=== PATIENT | male | born 1950 | race Caucasian/White ===

== ENCOUNTER → 2016-09-27 | Outpatient (CLI) | payer BC, OTHER ==
[~2016-09-27] MED LIST: CRS20 PO; GLC500 PO; IBUP-1050 PO; MULT-506 PO; OMEG10007 PO; PROSTATE PO; Probiotic PO; SERT25TA PO
[2016-09-27 13:11] LABS: ESTIMATED AVERAGE GLUCOSE 160 mg/dl; HA1C FLAG Normal (Normal)
== END | disposition home or self-care (01) ==
LOC: C.LAB 10:45
PROVIDERS: ATTEND Internal Medicine
DX: Z00.00 Encounter for general adult medical examination without abnormal findings (principal); E11.9 Type 2 diabetes mellitus without complications

== ENCOUNTER → 2016-12-26 | Outpatient (CLI) | payer BC, OTHER | END | disposition home or self-care (01) | LOC: C.LAB 14:23 | PROVIDERS: ATTEND Urology | DX: Z11.59 Encounter for screening for other viral diseases (principal); N40.1 Benign prostatic hyperplasia with lower urinary tract symptoms ==

== ENCOUNTER → 2017-04-14 | Outpatient (CLI) | payer BC, OTHER | END | disposition home or self-care (01) | LOC: C.RDSM 08:13 | PROVIDERS: ATTEND Physical Medicine & Rehabilitation | DX: M54.2 Cervicalgia (principal); M54.5 Low back pain ==

== ENCOUNTER → 2017-05-10 | Outpatient (CLI) | payer BC, OTHER ==
[2017-05-10 09:57] LABS: ALT/SGPT 27 U/L (12-78); BLOOD UREA NITROGEN 19 mg/dl (7-18); BUN/CREATININE RATIO 17.4 (10-20); CALCIUM 9.1 mg/dl (8.5-10.1); CARBON DIOXIDE 27 mmol/L (21-32); CHLORIDE 105 mmol/L (98-107); CHOLESTEROL 144 mg/dl (0-200); CREATININE 1.07 mg/dl (0.60-1.40); GLUCOSE 131 mg/dl (70-99); POTASSIUM 4.5 mmol/L (3.5-5.1); SODIUM 140 mmol/L (136-145); TRIGLYCERIDES 91 mg/dl (0-150); VERY LOW DENSITY LIPOPROT CALC 18 mg/dl
[2017-05-10 10:02] LABS: ALKALINE PHOSPHATASE 43 U/L (45-117); AST/SGOT 17 U/L (15-37); CHOLESTEROL/HDL RATIO 3.4; HDL CHOLESTEROL 42 mg/dl; LDL CHOLESTEROL CALCULATED 84 mg/dl
[2017-05-11 08:38] LABS: ESTIMATED AVERAGE GLUCOSE 137 mg/dl; HA1C FLAG Normal (Normal)
== END | disposition home or self-care (01) ==
LOC: C.LAB 08:50
PROVIDERS: ATTEND Internal Medicine
DX: E11.9 Type 2 diabetes mellitus without complications (principal)

== ENCOUNTER → 2017-05-19 | Outpatient (CLI) | payer BC, OTHER ==
--- NOTE | 2017-05-19 13:30 | DIAGNOSTIC IMAGING REPORT ---
CHEST 2 VIEWS ROUTINE CLINICAL HISTORY: 67 years-old Male presenting with COUGH. TECHNIQUE: PA and lateral views of the chest were obtained. COMPARISON: 05/06/2016. FINDINGS: Atherosclerosis of aortic arch. Cardiac silhouette normal in size. Possible calcified granulomas at the right lung base. No other focal infiltrate. No pleural effusion or pneumothorax. Degenerative changes of the thoracic spine. Upper abdomen normal. IMPRESSION: 1. No acute cardiopulmonary disease. Electronically signed by: Fidel Barirga M.D. 05/19/2017 1:28 PM Dictated Date/Time: 05/19/2017 1:27 PM
== END | disposition home or self-care (01) ==
LOC: C.RADBC 11:37
PROVIDERS: ATTEND Physician Assistant
DX: R05 Cough (principal)

== ENCOUNTER → 2017-07-25 | Outpatient (CLI) | payer BC, OTHER | END | disposition home or self-care (01) | LOC: C.LAB 10:46 | PROVIDERS: ATTEND Internal Medicine | DX: R68.82 Decreased libido (principal); E78.5 Hyperlipidemia, unspecified ==

== ENCOUNTER → 2017-09-26 | Outpatient (CLI) | payer BC, OTHER ==
[2017-09-26 09:10] LABS: BASO % 0.1 %; BASO ABS # 0.01 K/uL (0-0.2); EOS ABS # 0.36 K/uL (0-0.5); HEMATOCRIT 45.1 % (42-52); HEMOGLOBIN 15.5 g/dL (14.0-18.0); IG# 0.04 K/uL (0.00-0.02); LYMPH ABS # 1.72 K/uL (1.2-3.4); MEAN CELL VOLUME 91.9 fL (80-100); MEAN CORPUSCULAR HEMOGLOBIN 31.6 pg (25-34); MEAN CORPUSCULAR HGB CONC 34.4 g/dl (32-36); MONO % 7.5 %; MONO ABS # 0.54 K/uL (0.11-0.59); NEUT % 62.8 %; NEUT ABS # 4.49 K/uL (1.4-6.5); PLATELET COUNT 162 K/uL (130-400); RED CELL DISTRIBUTION WIDTH CV 12.9 % (11.5-14.5); RED CELL DISTRIBUTION WIDTH SD 43.1 fL (36.4-46.3); WHITE BLOOD COUNT 7.16 K/uL (4.8-10.8)
[2017-09-26 09:41] LABS: ALBUMIN 3.6 gm/dl (3.4-5.0); ALT/SGPT 29 U/L (12-78); BLOOD UREA NITROGEN 26 mg/dl (7-18); CALCIUM 9.2 mg/dl (8.5-10.1); CARBON DIOXIDE 28 mmol/L (21-32); CHOLESTEROL 180 mg/dl (0-200); CREATININE 0.93 mg/dl (0.60-1.40); GLUCOSE 137 mg/dl (70-99); POTASSIUM 4.3 mmol/L (3.5-5.1); SODIUM 141 mmol/L (136-145)
[2017-09-26 09:50] LABS: HEMOGLOBIN A1C 6.5 % (4.5-5.6)
[2017-09-26 09:52] LABS: ALKALINE PHOSPHATASE 45 U/L (45-117); AST/SGOT 12 U/L (15-37); LDL CHOLESTEROL CALCULATED 122 mg/dl; TOTAL PROTEIN 7.2 gm/dl (6.4-8.2)
== END | disposition home or self-care (01) ==
LOC: C.LAB 08:31
PROVIDERS: ATTEND Internal Medicine
DX: R68.82 Decreased libido (principal); G47.33 Obstructive sleep apnea (adult) (pediatric); E78.5 Hyperlipidemia, unspecified; N20.0 Calculus of kidney; E11.29 Type 2 diabetes mellitus with other diabetic kidney complication; R03.0 Elevated blood-pressure reading, without diagnosis of hypertension; G62.9 Polyneuropathy, unspecified; Z87.09 Personal history of other diseases of the respiratory system

== ENCOUNTER → 2017-10-08 | Outpatient (CLI) | payer BC, OTHER | END | disposition home or self-care (01) | LOC: C.LABBC 07:31 | PROVIDERS: ATTEND Internal Medicine | DX: E29.1 Testicular hypofunction (principal); R68.82 Decreased libido; R79.89 Other specified abnormal findings of blood chemistry ==

== ENCOUNTER 2018-02-14 14:26 | Emergency (ER) | payer BC, OTHER ==
[~2018-02-14] VITALS: Ht 170.2 cm; Wt 119.5 kg
[2018-02-14 14:36] VITALS: Ht 170.2 cm; Wt 119.5 kg
[2018-02-14] MEDS ORDERED: MULT-506 PO (15:44)
[2018-02-14] MEDS ORDERED: SERT25TA PO (15:44)
[2018-02-14] MEDS ORDERED: GLC/500 PO (15:44)
[2018-02-14] MEDS ORDERED: MISCCAP80 PO (15:44)
[2018-02-14] MEDS ORDERED: ROSU20TA PO (15:44)
--- NOTE | 2018-02-14 16:17 | DIAGNOSTIC IMAGING REPORT ---
HEAD WITHOUT CONTRAST (CT) CLINICAL HISTORY: 67 years-old Male with FALL, HIT HEAD, NECK PAIN. Acute head pain status post trauma TECHNIQUE: Multiple axial CT images of the head were obtained without contrast. A dose lowering technique was utilized adhering to the principles of ALARA. CT DOSE: 1016.28 mGy.cm COMPARISON: CT cervical spine of same day. FINDINGS: No acute intracranial hemorrhage, midline shift, intracranial mass, hydrocephalus, territorial ischemia or abnormal extra-axial collection. The calvarium is intact. Mastoid air cells are clear. Mild mucosal thickening of the frontal and ethmoid sinuses. Soft tissues and orbits are unremarkable. Indeterminate 7 mm linear radiodensity about the central suboccipital subcutaneous tissues. IMPRESSION: 1. No acute intracranial abnormality. 2. Indeterminate 7 mm linear radiodensity within the suboccipital subcutaneous tissues. Correlate clinically to exclude foreign body. The above report was generated using voice recognition software. It may contain grammatical, syntax or spelling errors. Electronically signed by: Vince Diaz M.D. 02/14/2018 4:16 PM Dictated Date/Time: 02/14/2018 4:13 PM
--- NOTE | 2018-02-14 16:29 | DIAGNOSTIC IMAGING REPORT ---
CERVICAL SPINE W/O CLINICAL HISTORY: 67 years-old Male with FALL, HIT HEAD, NECK PAIN. Acute post traumatic neck pain COMPARISON: CT head of same day, cervical spine radiographs 04/14/2017. TECHNIQUE: Multiple axial CT images of the cervical spine were obtained without contrast. A dose lowering technique was utilized adhering to the principles of ALARA. FINDINGS: Predental interval is within normal limits. No acute cervical spine fracture or subluxation identified. Mastoid air cells and middle ear cavities are clear. Evaluation of the central canal and neuroforamina is better assessed by MRI. Multilevel spondylitic spurring with mild facet arthrosis. Moderate facet arthropathy on the right at C2-C3 with subcortical cystic changes. Moderate intervertebral disc space narrowing with posterior disc osteophyte complex formations at C4-C5 and C5-C6 with mild to moderate disc space narrowing and posterior disc osteophyte complex formation at C6-C7. Nuchal ligament calcifications are noted about the mid cervical spine. No prevertebral soft tissue swelling. Heterogeneous thyroid with possibly absent left thyroid tissue. Calcifications are noted about the thyroid isthmus and right thyroid lobe. No pneumothorax. Calcification of the carotid bulbs. No pathologically enlarged lymph nodes. IMPRESSION: No acute cervical spine fracture or subluxation. The above report was generated using voice recognition software. It may contain grammatical, syntax or spelling errors. Electronically signed by: Vince Diaz M.D. 02/14/2018 4:27 PM Dictated Date/Time: 02/14/2018 4:23 PM
--- NOTE | 2018-02-14 16:42 | EMERGENCY ROOM VISIT NOTE ---
ED Visit Note First contact with patient: 16:40 The patient was seen and examined with Yanet Young [facility]. I agree with the history, physical and findings. Please see the note for disposition and details.
--- NOTE | 2018-02-14 16:46 | EMERGENCY ROOM VISIT NOTE ---
ED Visit Note First contact with patient: 15:09 CHIEF COMPLAINT: Head injury, neck pain after a fall HISTORY OF PRESENT ILLNESS: Patient is a 67-year-old male who presents to the emergency department for evaluation of headache and neck pain that occurred after a mechanical fall. He relates that he was at a local restaurant, and there had been a spill on the floor that he did not see. He slipped and fell, landing and striking his left forehead on the ground. He states that he fell hard enough that his head bounced. He did not lose consciousness. He was able to get up on his own, was attended to by employees at the restaurant. He reports that the incident occurred about an hour ago now. Initially, he had some discomfort at the eyebrow where he struck it, he now has developed a generalized bandlike headache. He also complains of pain in the midline of his neck that radiates to the left slightly. He rates his pain a 6/10. He denies any vision changes, nausea, vomiting, difficulty with balance, speech or coordination. No numbness, tingling or weakness radiating into the extremities. He had taken Tylenol earlier today for arthritis pain. He does not have any known cervical disease. He does not take any blood thinning medications. REVIEW OF SYSTEMS: Review of systems as per HPI. All other systems reviewed were negative. 10 systems reviewed. PMH: Electronic medical records are reviewed and summarized as above/below. See Problem List. SOCIAL HISTORY: Patient lives at home with his . Employed as a teacher. Non-smoker.. PHYSICAL EXAM: Vital Signs: Reviewed Nurse's notes. CONSTITUTIONAL: Pleasant, well-appearing 67-year-old male who is awake and alert and sitting upright on the gurney in no acute distress. HEENT: Normocephalic, atraumatic. Pupils equal, round, reactive to light and accommodation. EOMs intact without nystagmus. Sclera are anicteric. Abrasion and soft tissue swelling noted in the left eyebrow. No repairable laceration. Tympanic membranes intact, with normal landmarks. External canals are clear. No hemotympanum or Morris sign. Oral and nasopharynx are clear. No CSF rhinorrhea. Mucous membranes are moist. CERVICAL SPINE: Normal lordosis. No bony tenderness over the spinous processes of the cervical spine. No step-off deformity. He has reproducible tenderness in the left paraspinous and left trapezius muscle. Full range of motion. SKIN: No lesions or rash, normal skin turgor. EXTREMITIES: No cyanosis, edema, joint tenderness or swelling. No deformity. NEUROLOGICAL: Alert and oriented x4. Cranial nerves 2 through 12, sensation and strength grossly intact. Gait is normal. Mini-Mental status exam is unremarkable. ED course: The patient was seen and evaluated as above. He sustained a mechanical fall, striking his head, resulting in a headache and neck pain. Head and cervical spine CT scans were obtained. Findings are as noted below. CT findings were reviewed with him and his . He was reassured. Supportive care measures were discussed. Differential diagnoses included head contusion, skull or facial bone fracture, cerebral contusion, acute intracranial bleed, C- spine fracture, ligamentous injury, among others. Medication reconciliation: I attest that I have personally reviewed the patient' s current medication list. Blood pressure screening: Patient was found to have a slightly elevated blood pressure due to circumstances. I do not believe that the patient requires hypertension monitoring. HEAD WITHOUT CONTRAST (CT) CLINICAL HISTORY: 67 years-old Male with FALL, HIT HEAD, NECK PAIN. Acute head pain status post trauma TECHNIQUE: Multiple axial CT images of the head were obtained without contrast. A dose lowering technique was utilized adhering to the principles of ALARA. CT DOSE: 1016.28 mGy.cm COMPARISON: CT cervical spine of same day. FINDINGS: No acute intracranial hemorrhage, midline shift, intracranial mass, hydrocephalus, territorial ischemia or abnormal extra-axial collection. The calvarium is intact. Mastoid air cells are clear. Mild mucosal thickening of the frontal and ethmoid sinuses. Soft tissues and orbits are unremarkable. Indeterminate 7 mm linear radiodensity about the central suboccipital subcutaneous tissues. IMPRESSION: 1. No acute intracranial abnormality. 2. Indeterminate 7 mm linear radiodensity within the suboccipital subcutaneous tissues. Correlate clinically to exclude foreign body. CERVICAL SPINE W/O CLINICAL HISTORY: 67 years-old Male with FALL, HIT HEAD, NECK PAIN. Acute post traumatic neck pain COMPARISON: CT head of same day, cervical spine radiographs 04/14/2017. TECHNIQUE: Multiple axial CT images of the cervical spine were obtained without contrast. A dose lowering technique was utilized adhering to the principles of ALARA. FINDINGS: Predental interval is within normal limits. No acute cervical spine fracture or subluxation identified. Mastoid air cells and middle ear cavities are clear. Evaluation of the central canal and neuroforamina is better assessed by MRI. Multilevel spondylitic spurring with mild facet arthrosis. Moderate facet arthropathy on the right at C2-C3 with subcortical cystic changes. Moderate intervertebral disc space narrowing with posterior disc osteophyte complex formations at C4-C5 and C5-C6 with mild to moderate disc space narrowing and posterior disc osteophyte complex formation at C6-C7. Nuchal ligament calcifications are noted about the mid cervical spine. No prevertebral soft tissue swelling. Heterogeneous thyroid with possibly absent left thyroid tissue. Calcifications are noted about the thyroid isthmus and right thyroid lobe. No pneumothorax. Calcification of the carotid bulbs. No pathologically enlarged lymph nodes. IMPRESSION: No acute cervical spine fracture or subluxation. Problem List Medical Problems: (1) Diab Miladis Wo Compl, Type Ii Or Unspec Type, Not Uncntrld Status: Chronic (2) Hyperlipidemia Nec/Nos Status: Chronic (3) Hypertension Nos Status: Chronic (4) Kidney stone Status: Resolved Current/Historical Medications Scheduled Metformin Hcl (Glucophage), 500 MG PO BID Multivitamin (Multivitamin), 1 TAB PO DAILY Probiotic Product (Probiotic), 1 CAP PO DAILY Rosuvastatin Calcium (Crestor), 20 MG PO Q2D Sertraline (Zoloft), 25 MG PO 5XWK Allergies Coded Allergies: Penicillins (Unverified Allergy, Intermediate, ., 02/14/18) Iodine (Verified Allergy, Unknown, 02/14/18) Uncoded Allergies: PENICILLIN (Allergy, Unknown, Unknown, 08/09/11) Vital Signs Date Time Temp Pulse Resp B/P (MAP) Pulse Ox O2 Delivery O2 Flow Rate FiO2 02/14/18 14:36 36.7 63 18 156/81 94 Room Air Departure Information Impression Primary Impression: Head contusion Additional Impressions: Neck pain Fall Referrals Fidel Paulino M.D. (PCP) Patient Instructions [facility] Additional Instructions Ibuprofen(Motrin, Advil) may be used for fever or pain. Use 600mg every six hours as needed. Take with food. Avoid using more than 2400mg in a 24 hour period. Do not use 2400mg per day for more than three consecutive days without physician direction. Prolonged inappropriate use can lead to stomach upset or ulcers. This medication can be taken if you need to drive, work, or perform activities which may be dangerous when taking narcotic pain medication. (AND/OR) Acetaminophen(Tylenol) may be used for fever or pain. Use 1000mg every six hours as needed. Avoid using more than 3000mg in a 24 hour period. This medication can be taken if you need to drive, work, or perform activities which may be dangerous when taking narcotic pain medication. Rest and avoid heavy lifting until your symptoms resolve and then gradually return to full activity. A good rule of thumb is if it hurts your neck to perform a certain activity, then it should be avoided until you are healthy again. Ice compresses for 20 minutes at a time four times daily for 2-3 days, then switch to moist heat compresses. Continue current medications. Return to the ER immediately for severe headaches, vomiting, problems with balance or coordination, severe neck pain, numbness or tingling into the upper extremities, inability to ambulate, or any other worsening symptoms. Follow-up with your primary care physician for recheck this week. Problem Qualifiers
[2018-02-14 16:57] VITALS: BP 155/78; PULSE 65; TEMP 36.7; O2SAT 95
== END 2018-02-14 16:58 | disposition home or self-care (01) ==
LOC: C.EDB 14:28 → C.EDD 16:58
DX: S00.93XA Contusion of unspecified part of head, initial encounter (principal); M54.2 Cervicalgia; W01.198A Fall on same level from slipping, tripping and stumbling with subsequent striking against other object, initial encounter; Y92.511 Restaurant or cafe as the place of occurrence of the external cause; E11.9 Type 2 diabetes mellitus without complications; I10 Essential (primary) hypertension; E78.5 Hyperlipidemia, unspecified; Z88.0 Allergy status to penicillin; Z91.041 Radiographic dye allergy status; Z79.84 Long term (current) use of oral hypoglycemic drugs; Z79.899 Other long term (current) drug therapy